=== PATIENT | male | born 1960 | race Two or more races ===

== ENCOUNTER 2018-07-06 09:39 | Inpatient (IN) | payer SELFPAY ==
[2018-07-06] MEDS ORDERED: Piperacillin/Tazobac ADVAN(*) 3.375 GM in NS 0.9% 100 ML* 100 ML IVPB ONE ×2 (10:03→11:47)
[2018-07-06] MEDS ORDERED: NS 0.9% 1000 ML** 1,000 ML IV ONE (10:05)
[2018-07-06 10:34] LABS: ABS Basophils 0.1 10^3/ul (0-0.2); ABS Eosinophils 0.1 10^3/ul (0-0.6); ABS Lymphocytes 1.4 10^3/ul (1.0-4.8); ABS Monocytes 0.7 10^3/ul (0-0.8); Eosinophil % 1.1 %; Hematocrit 45 % (42-52); Hemoglobin 15.2 g/dL (14.0-18.0); Lymphocyte % 16.7 %; Mean Corpuscular HGB Conc 34 g/dL (31-36); Mean Corpuscular Hemoglobin 31 pg (27-31); Mean Corpuscular Volume 90 fL (80-94); Mean Platelet Volume 7.9 fL (7.4-10.4); Platelet Count 317 10^3/uL (150-450); Red Blood Count 4.95 10^6 /uL (4.18-5.48); Red Cell Distribution Width 13 % (10.5-15); White Blood Count 8.3 10^3/uL (3.5-10.8)
--- NOTE | 2018-07-06 10:39 | ED ---
Lower Extremity - HPI Summary HPI Summary: Patient is a 58-year-old male who presents to the ED with the foot contusion 2 weeks ago now with erythema, worsening pain and discoloration to the fifth toe. Denies a history of known diabetes. He is otherwise healthy and takes no medications. He states he developed the redness over the past few days and has not noticed the discoloration of the toe until the past few days as well. Pain is worsening and he states he has been limping due to pain. Pain is most notably to the dorsum of the foot extending up into the lower extremity just proximal to the left ankle with slight streaking and erythema. There is erythema to the dorsum of the left foot. He denies any fevers, sweats, chills. - History of Current Complaint Chief Complaint: EDExtremityLower Stated Complaint: RT FOOT INJURY PER PT Time Seen by Provider: 07/06/18 09:44 Hx Obtained From: Patient Onset of Pain: Days Onset/Duration: Weeks Severity Initially: Moderate Severity Currently: Moderate Pain Intensity: 10 Pain Scale Used: 0-10 Numeric Timing: Constant Location: Is Discrete @ - left dorsum of the foot and little toe Associated Signs And Symptoms: Positive: Bruising, Other - ecchymotic necrosed fifth toe Aggravating Factor(s): Standing, Ambulation - Risk Factors Gout Risk Factors: Male DVT Risk Factors: Negative Septic Arthritis Risk Factor: Negative - Allergies/Home Medications Allergies/Adverse Reactions: Allergies Allergy/AdvReac Type Severity Reaction Status Date / Time No Known Allergies Allergy Verified 07/06/18 09:45 Home Medications: Home Medications NK [No Home Medications Reported] 07/06/18 [History Confirmed 07/06/18] PMH/Surg Hx/FS Hx/Imm Hx Previously Healthy: Yes - unknown PMH - patient has no PCP - Immunization History Hx Pertussis Vaccination: No Immunizations Up to Date: No Infectious Disease History: No Infectious Disease History: Denies: Traveled Outside the [place] in Last 30 Days - Social History Occupation: Employed Full-time Lives: With Family Alcohol Use: None Hx Substance Use: No Substance Use Type: Reports: None Hx Tobacco Use: No Smoking Status (MU): Never Smoked Tobacco Review of Systems Constitutional: Negative Negative: Fever, Chills, Fatigue, Skin Diaphoresis Negative: Palpitations, Chest Pain Negative: Shortness Of Breath Genitourinary: Negative Positive: no symptoms reported, see HPI Positive: Arthralgia - left dorsum foot, left little toe Positive: Other - necrosis with ulcerations, bone not grossly visible, erythema to the dorsum of the L foot with lymphangitis extending just distal to the knee Neurological: Negative All Other Systems Reviewed And Are Negative: Yes Physical Exam Triage Information Reviewed: Yes Vital Signs On Initial Exam: Initial Vitals Temp Pulse Resp BP Pulse Ox 98.6 F 90 16 173/89 96 07/06/18 09:41 07/06/18 09:41 07/06/18 09:41 07/06/18 09:41 07/06/18 09:41 Vital Signs Reviewed: Yes Appearance: Positive: Well-Appearing Skin: Positive: Warm, Skin Color Reflects Adequate Perfusion, Other - necrosis to the L little toe Head/Face: Positive: Normal Head/Face Inspection Eyes: Positive: EOMI, DAVID, Conjunctiva Clear Neck: Positive: Supple, No Lymphadenopathy Respiratory/Lung Sounds: Positive: Clear to Auscultation, Breath Sounds Present Cardiovascular: Positive: RRR, Pulses are Symmetrical in both Upper and Lower Extremities. Negative: Leg Edema Left, Leg Edema Right Musculoskeletal: Positive: Pain @ - left foot and left lower ext with 2+ pitting edema Neurological: Positive: Sensory/Motor Intact, Speech Normal, Other - pedal pulses intact - weak to the L dorsum Psychiatric: Positive: Affect/Mood Appropriate AVPU Assessment: Alert Diagnostics - Vital Signs Vital Signs Temp Pulse Resp BP Pulse Ox 07/06/18 09:41 98.6 F 90 16 173/89 96 - Laboratory Lab Results: Lab Results 07/06/18 Range/Units 10:17 WBC 8.3 (3.5-10.8) 10^3/uL RBC 4.95 (4.18-5.48) 10^6 /uL Hgb 15.2 (14.0-18.0) g/dL Hct 45 (42-52) % MCV 90 (80-94) fL MCH 31 (27-31) pg MCHC 34 (31-36) g/dL RDW 13 (10.5-15) % Plt Count 317 (150-450) 10^3/uL MPV 7.9 (7.4-10.4) fL Neut % (Auto) 72.7 % Lymph % (Auto) 16.7 % [place] % (Auto) 8.3 % Eos % (Auto) 1.1 % Baso % (Auto) 1.2 % Absolute Neuts (auto) 6.0 (1.5-7.7) 10^3/ul Absolute Lymphs (auto) 1.4 (1.0-4.8) 10^3/ul Absolute Monos (auto) 0.7 (0-0.8) 10^3/ul Absolute Eos (auto) 0.1 (0-0.6) 10^3/ul Absolute Basos (auto) 0.1 (0-0.2) 10^3/ul Absolute Nucleated RBC 0.0 10^3/ul Nucleated RBC % 0.0 ESR Pending Result Diagrams: 07/06/18 10:17 07/06/18 10:17 Lab Statement: Any lab studies that have been ordered have been reviewed, and results considered in the medical decision making process. Lower Extremity Course/Dx - Course Course Of Treatment: Patient is evaluated for worsening left foot pain and toe pain. Physical examination, there is erythema to the dorsum of the foot with discoloration to the L little toe which resembles necrosis. Foot xray obtained. Labs obtained. He is given zosyn for group B strep, staph and pseudomonoas coverage. PE: necrosis with ulcerations, bone not grossly visible , erythema to the dorsum of the L foot with lymphangitis extending just distal to the knee. probe to the area is superficial without necrosis to the bone. ESR elevated at 108. CRP is 107. WBC normal. Glucose 215. A1C pending. Xray shows no evidence of fx or osteomyelitis. Discussed case with Dr. Page at 11:15am who suggests MRI and admission. LAURE ordered. Discussed with Dr. Allan to admit to hospitalist service, Kera Cline PA-C will consult. - Diagnoses Differential Diagnosis/HQI/PQRI: Positive: Cellulitis, Contusion, Osteomyelitis , Puncture Wound Provider Diagnoses: Toe necrosis - Physician Notifications Discussed Care Of Patient With: Chaz Page - admit to hospitalist service Instructed by Provider To: Admit As Inpatient Discharge - Sign-Out/Discharge Documenting (check all that apply): Patient Departure Patient Received Moderate/Deep Sedation with Procedure: No - Discharge Plan Condition: Fair Disposition: ADMITTED TO [facility] Referrals: No Primary Care Phys,NOPCP [Primary Care Provider] - - Billing Disposition and Condition Condition: FAIR Disposition: Admitted to [facility]
[2018-07-06] MEDS ORDERED: Morphine 4 MG/ML VIAL (1 ml) 4 MG/ML VIAL IV ONE (10:44)
[2018-07-06 10:49] LABS: Albumin 3.9 g/dL (3.2-5.2); Albumin/Globulin Ratio 1.2 (1-3); BUN/Creatinine Ratio 14.3 (8-20); C Reactive Protein 107.84 mg/L (<8.01); Calcium 9.3 mg/dL (8.6-10.3); EGFR African American 103.2 (>60); EGFR Non-African American 85.3 (>60); Globulin 3.3 g/dL (2-4); Total Bilirubin 0.4 mg/dL (0.2-1.0); Total Protein 7.2 g/dL (6.4-8.9)
[2018-07-06 11:46] LABS: Erythrocyte Sed Rate 108 mm/Hr (0-19)
[2018-07-06] MEDS ORDERED: Zosyn per Pharmacy* NOTE FOLLOW UP SCH (12:00)
[2018-07-06] MEDS ORDERED: LORazepam TAB(*) 1 MG PO PRN (12:31)
--- NOTE | 2018-07-06 14:01 | HP ---
CC: Dr. Page; Dr. Stewart* HISTORY AND PHYSICAL: DATE OF ADMISSION: 07/06/18 PRIMARY CARE PROVIDER: None. CHIEF COMPLAINT: Left foot pain after "I crashed it with a truck door 2 weeks ago." HISTORY OF PRESENT ILLNESS: Mr. Cline is a 58-year-old male who stated that he crashed his left foot with the door approximately 2 weeks ago. Over the next day, it started hurting more and it continued to hurt for 2 weeks and finally he decided to come into the ED for evaluation. He stated that he has been afebrile. His left foot had been swollen ever since the accident. He has not noticed any other worrisome symptoms. I was called to evaluate this patient for necrotic left fifth toe. Orthopedic service requested the medicine service to admit this patient for further management. The patient is going to undergo an MRI of the foot and be admitted to the hospital for likely left fifth toe osteomyelitis. PAST MEDICAL HISTORY: Tonsillectomy as a child. MEDICATIONS: None. ALLERGIES: No known drug allergies. SOCIAL HISTORY: The patient drinks 2 to 4 beers every other day and smokes a pack of cigarettes per day and he started smoking when he was 11 years old. 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 His surrogate, he names his sister Marilee and his mother. His sister lives in [place]; his mother lives in [place], [place]. REVIEW OF SYSTEMS: Please see history of present illness. All the other remaining 12 systems were reviewed with the patient and were otherwise negative. Specifically, the patient denies any chest pain or dyspnea with exertion. He has not had any cardiac problems. He had not seen a doctor for many years. PHYSICAL EXAMINATION GENERAL: The patient is a pleasant 58-year-old male who is in no acute distress. Alert and oriented x3. VITAL SIGNS: Blood pressure of 135/71, heart rate of 18 and regular, respiratory rate 16, oxygen saturation 94% on room air, temperature of 98.6. HEENT: Head atraumatic, normocephalic. Eyes: Pupils are equal and reactive to light and accommodation. Oropharynx is clear. Mucosa moist. NECK: Supple. No JVD. No bruit bilaterally. RESPIRATORY: Coarse rhonchi at bilateral bases, otherwise clear. CARDIOVASCULAR: Regular rate and rhythm. No murmur. ABDOMEN: Soft, nontender. Bowel sounds are present in all 4 quadrants. EXTREMITIES: There is nonpitting left ankle and left foot edema. Pulses are poorly palpable, but present bilaterally. There is no clubbing or cyanosis. The left foot is edematous with the left fifth toe appearing necrotic with an area of subcutaneous purulent collection laterally. There is erythema overlying the lateral aspect of the foot consistent with cellulitis. NEURO EVALUATION: Speech clear. Cranial nerves II through XII grossly intact. Motor strength is 5/5 bilaterally. DIAGNOSTIC STUDIES/LAB DATA: White blood cell count of 8.3, hemoglobin 15.2, hematocrit 45, platelets of 317. Sodium of 138, potassium 4.0, chloride 103, carbon dioxide 28, BUN 13, creatinine 0.91. Glucose random of 215, alkaline phosphatase 134, C-reactive protein of 407. MRI of the foot is pending at the time of dictation. Left foot x-ray, impression: "No evidence of lysis to suggest osteomyelitis of the left sided digits. No fracture is noted." ASSESSMENT AND PLAN: 1. What appears to be necrotic left toe with likely osteomyelitis. The patient is going to undergo an MRI of the left foot and Dr. Page was notified by the ED and I believe he is going to ask Dr. Stewart from Orthopedic Surgery to see patient in evaluation. Either way, the orthopedic surgical service is going to be on consult. If patient required orthopedic surgery, he has had no history of cardiac symptoms and no history of heart disease. His glucose is elevated and he may have diabetes, but otherwise his exercise tolerance has not been impaired. His EKG is pending at the time of dictation, but assuming his EKG is not markedly abnormal, he is an appropriate candidate for possibility of left foot surgery. 2. Hyperglycemia. The patient's glucose level random was 215. We will obtain hemoglobin A1c and evaluate it further. 3. The patient's initial blood pressure was 173/89 and currently is 135/71. I believe this is a adrenergic response and we will continue to observe. 4. DVT prophylaxis. The patient is low risk and we will continue ambulation. In addition to that, his left distal leg is swollen and we will obtain Dopplers to rule out DVT. 5. The patient's code status is full. 6. Surrogate is his sister and his mother. TIME SPENT: Approximately 62 minutes were spent on admission of this patient; more than half that time was spent [id number] with the patient during the interview and physical exam. [id number]/[facility] #: [id number] HERRERA
[2018-07-06] MEDS ORDERED: Acetaminophen TAB* 325 MG PO PRN (14:29)
[2018-07-06] MEDS: NS 0.9% 1000 ML** 1,000 ML IV SCH (14:30)
[2018-07-06] MEDS: oxyCODONE TAB* 5 MG TAB PO PRN ×2 (14:36→20:59)
[2018-07-06] MEDS: ZOSYN 3.375 GM Q8H per EXTENDED INFUSION IVPB SCH ×4 (15:40→22:52)
--- NOTE | 2018-07-06 15:56 | CONS ---
CONSULTATION REPORT: DATE OF CONSULT: 07/06/18 PRIMARY CARE PROVIDER: None. CHIEF COMPLAINT: Left foot pain and black toe. HISTORY OF PRESENT ILLNESS: Mr. Cline is a 58-year-old male with no past medical history as he has not been to a doctor in roughly 15 years who presents to [facility] 07/06/18 with a painful black left little toe. He slammed the door on his left foot roughly 2 weeks ago, he has experienced pain and progressive blackening of his little toe on the left foot. Due to worsening appearance and pain, he decided to come to the emergency room on 07/06/18. He has not had any fever or chills. He is newly diagnosed with diabetes this hospital stay, he carries a strong family history of diabetes. PAST MEDICAL HISTORY: None known. PAST SURGICAL HISTORY: None. MEDICATIONS: None. ALLERGIES: No known drug allergies. SOCIAL HISTORY: The patient drinks 12 beers a day and smokes three quarters pack of cigarettes a day. He smokes marijuana occasionally. He works at a local restaurant as a cook. His sister is at hospital with him today. REVIEW OF SYSTEMS: General: No fever or chills. HEENT: No headache. No change in vision. Cardiac: No chest pain. No history of VA. Respiratory: No shortness of breath or cough. GI: No abdominal pain, nausea, vomiting, or diarrhea. : No dysuria. Musculoskeletal: Positive for black, painful left little toe. No other complaints of extremities. Neuro: Denies any decreased sensation of extremities. Hematology: No history of blood clot. PHYSICAL EXAM: General: Pleasant, well appearing, no acute distress. Vital Signs: Temperature 98.2, pulse rate 78, respiratory rate 18, oxygen saturation 100%, blood pressure 152/67. HEENT: Head is normocephalic and atraumatic. Extraocular movements are intact. Cardio: S1, S2. Regular rate and rhythm. Respiratory: Clear to auscultation bilaterally. Abdomen: Soft, nontender, nondistended. Bilateral upper extremities and contralateral lower extremity, skin envelope intact. No erythema. No tenderness to palpation. Able to move extremities well without pain. Left lower extremity, nontender to palpation from ankle proximally, though he is quite tender to palpation throughout the dorsum of the foot and the base of the 5th toe. 5th toe is black in coloration and insensate distally. There is no discharge. There is mild erythema of the dorsum of the foot, which does not extend past the ankle. Neuro: Sensation is intact to light touch throughout bilateral upper and lower extremities aside from the left fifth toe, which is insensate. Vascular: DP is 1+ and PT 2+ on the left lower extremity. DP and PT 2+ on the right lower extremity. DIAGNOSTIC STUDIES/LAB DATA: Left foot x-ray, no evidence of fracture. Left foot MRI, bone marrow edema in the proximal, middle and distal phalanges of the fifth toe and distal phalanx of the fourth toe suggestive of osteomyelitis, ABIs on the left 0.81, left toe LAURE 0.28. ASSESSMENT: Necrotic left little toe. PLAN: The patient can continue to receive IV antibiotics as ordered per medicine. I spoke with Dr Ram, vascular, who will see him in consult. He will need an amputation of this left fifth toe. Unless he becomes systemically ill, this can wait until vascular evaluation and intervention if needed is complete. Dr Grimm saw this patient as well, he is in agreement with this plan. He should receive chemical DVT prophylaxis while in house, SCDs and needs diabetes education. MARLENE CRISOSTOMO [id number]/[facility] #: [id number] MTDVanessa
[2018-07-06] MEDS ORDERED: Iohexol 350* (CONTRAST) 500 ML MDV IV ONE (16:07)
[2018-07-06] MEDS ORDERED: Dextrose 50% Syringe 50 ML* 25 GM/50 ML SYRINGE IV PUSH PRN (18:40)
[2018-07-06] MEDS: Insulin LISPRO* 1 UNITS UNIT SUBCUT SCH (21:46)
[2018-07-07] MEDS: NS 0.9% 1000 ML** 1,000 ML IV SCH (04:23)
[2018-07-07 05:23] LABS: ABS Basophils 0.1 10^3/ul (0-0.2); ABS Eosinophils 0.1 10^3/ul (0-0.6); ABS Lymphocytes 1.8 10^3/ul (1.0-4.8); ABS Monocytes 0.7 10^3/ul (0-0.8); ABS Neutrophils 5.5 10^3/ul (1.5-7.7); Eosinophil % 1.6 %; Hematocrit 41 % (42-52); Lymphocyte % 21.8 %; Mean Corpuscular HGB Conc 34 g/dL (31-36); Mean Corpuscular Hemoglobin 30 pg (27-31); Mean Corpuscular Volume 89 fL (80-94); Mean Platelet Volume 7.8 fL (7.4-10.4); Platelet Count 251 10^3/uL (150-450); Red Cell Distribution Width 13 % (10.5-15); White Blood Count 8.2 10^3/uL (3.5-10.8)
[2018-07-07 05:38] LABS: BUN/Creatinine Ratio 12.9 (8-20); Calcium 8.8 mg/dL (8.6-10.3); EGFR African American 111.6 (>60); EGFR Non-African American 92.3 (>60); Potassium 3.8 mmol/L (3.5-5.0)
[2018-07-07] MEDS: ZOSYN 3.375 GM Q8H per EXTENDED INFUSION IVPB SCH ×6 (06:30→22:55)
[2018-07-07] MEDS: oxyCODONE TAB* 5 MG TAB PO PRN ×3 (07:04→17:49)
[2018-07-07] MEDS: Insulin LISPRO* 1 UNITS UNIT SUBCUT SCH ×4 (08:09→22:54)
--- NOTE | 2018-07-07 09:18 | PN ---
Subjective Date of Service: 07/07/18 Interval History: Mr. Cline is a 58 yo male, admitted with concern for left 5th toe crush injury with subsequent gangrene to the small toe and concern for osteomyelitis. He was also found to have diabetes and PAD. Mr. Cline states he does not have a PCP and was unaware he was diabetic, though he states his whole family is. He actively smokes and drinks large amounts of alcohol on a regular, if not daily basis. He currently denies fever/chills, CPs, SOB, abd pain, n/v, tremors, or significant pain. He denies tingling/numbness and states the left foot is very tender, especially at the area of the toe. Family History: Unchanged from Admission Social History: Unchanged from Admission Past Medical History: Unchanged from Admission Objective Active Medications: Acetaminophen (Tylenol Tab*) 650 mg PO Q4H PRN PRN Reason: FEVER/PAIN Dextrose (D50w Syringe 50 Ml*) 12.5 gm IV PUSH .FOR FS < 60 - SS PRN PRN Reason: FS < 60 Sodium Chloride (Ns 0.9% 1000 Ml) 1,000 mls @ 75 mls/hr IV PER RATE [facility] Last Admin: 07/07/18 04:23 Dose: 75 mls/hr Piperacillin Sod/Tazobactam (Sod 3.375 gm/ Sodium Chloride) 100 mls @ 25 mls/ hr IVPB Q8H [facility] Last Admin: 07/07/18 06:30 Dose: 25 mls/hr Insulin Human Lispro (Humalog*) 0 units SUBCUT ACHS [facility]; Protocol Last Admin: 07/07/18 08:09 Dose: Not Given Lorazepam (Ativan Tab(*)) 1 mg PO Q6H PRN PRN Reason: withdrawal Oxycodone HCl (Roxycodone Tab*) 5 mg PO Q6H PRN PRN Reason: PAIN Last Admin: 07/07/18 07:04 Dose: 5 mg Pharmacy Consult (Zosyn Per Pharmacy*) 1 note FOLLOW UP .ZOSYN PER PHARMACY [facility] Vital Signs - 8 hr 07/07/18 07/07/18 07/07/18 06:31 07:04 07:47 Temperature 98.4 F Pulse Rate 71 Respiratory 18 16 16 Rate Blood Pressure 143/99 (mmHg) O2 Sat by Pulse 93 Oximetry Oxygen Devices in Use Now: None Appearance: Middle aged male, sitting up in bed, NAD Eyes: No Scleral Icterus, PERRLA Ears/Nose/Mouth/Throat: Clear Oropharnyx, Mucous Membranes Moist Neck: NL Appearance and Movements; NL JVP Respiratory: Symmetrical Chest Expansion and Respiratory Effort Cardiovascular: NL Sounds; No Murmurs; No JVD, RRR Abdominal: NL Sounds; No Tenderness; No Distention Extremities: - - necrotic left 5th toe, localized edema to left ankle and foot, unable to palpate distal pulse Skin: - - erythema to left foot Neurological: Alert and Oriented x 3, NL Muscle Strength and Tone Lines/Tubes/Other Access: Clean, Dry and Intact Peripheral IV Nutrition: Taking PO's Result Diagrams: 07/07/18 05:08 07/07/18 05:08 Additional Lab and Data: Lab Results 07/06/18 Range/Units 10:17 WBC 8.3 (3.5-10.8) 10^3/uL RBC 4.95 (4.18-5.48) 10^6 /uL Hgb 15.2 (14.0-18.0) g/dL Hct 45 (42-52) % MCV 90 (80-94) fL MCH 31 (27-31) pg MCHC 34 (31-36) g/dL RDW 13 (10.5-15) % Plt Count 317 (150-450) 10^3/uL MPV 7.9 (7.4-10.4) fL Neut % (Auto) 72.7 % Lymph % (Auto) 16.7 % [place] % (Auto) 8.3 % Eos % (Auto) 1.1 % Baso % (Auto) 1.2 % Absolute Neuts (auto) 6.0 (1.5-7.7) 10^3/ul Absolute Lymphs (auto) 1.4 (1.0-4.8) 10^3/ul Absolute Monos (auto) 0.7 (0-0.8) 10^3/ul Absolute Eos (auto) 0.1 (0-0.6) 10^3/ul Absolute Basos (auto) 0.1 (0-0.2) 10^3/ul Absolute Nucleated RBC 0.0 10^3/ul Nucleated RBC % 0.0 ESR Pending Assess/Plan/Problems-Billing Assessment: Mr. Cline is a 58 yo male with no previously known medical history who presented to the ED on 07/06/18 with concern for left necrotic 5th toe from car door crush injury and was found to have concern for osteomyelitis, likely secondary to undiagnosed type 2 diabetes and peripheral arterial disease. - Patient Problems (1) Toe necrosis Code(s): I96 - GANGRENE, NOT ELSEWHERE CLASSIFIED Comment: Secondary to car door crush injury Appreciate ortho consult Plan for amputation of toe but will need vascular consult and intervention, given concurrent PAD. (2) Osteomyelitis Code(s): M86.9 - OSTEOMYELITIS, UNSPECIFIED Comment: Likely secondary to injury to left foot and 5th toe Continue Zosyn ID consult requested (3) Type 2 diabetes mellitus Comment: HgbA1c 8.8 Newly diagnosed Diabetes education ordered Continue FSBG with Lispro Insulin coverage. Patient would benefit from further outpatient education. (4) Peripheral arterial disease Code(s): I73.9 - PERIPHERAL VASCULAR DISEASE, UNSPECIFIED Comment: CTA with runoff with concern for PAD Appreciate interventional radiology consult, which is pending I have discussed concurrent risk factors with patient, including tobacco and alcohol use, as well as diet. Patient also appears to have hypertension, as evidenced by BP trend SBP 130s- 150s Start low dose lisinopril. Add on lipid profile to AM labs. (5) DVT prophylaxis Code(s): Z29.9 - ENCOUNTER FOR PROPHYLACTIC MEASURES, UNSPECIFIED Comment: Ambulation If prolonged stay, consider adding chemoprophylaxis. Status and Disposition: Inpatient admission. Patient does not have PCP and will need referral. He will also need referral for further diabetes education. Dispo pending consultation from interventional radiology. Attending: Guillermo Gifford
--- NOTE | 2018-07-07 12:02 | PN ---
Progress Note - Progress Note Date of Service: 07/07/18 SOAP: Subjective: resting comfortably in bed without complaints Objective: Vital Signs Temp Pulse Resp BP Pulse Ox 98.4 F 71 20 143/99 93 07/07/18 07:47 07/07/18 07:47 07/07/18 11:54 07/07/18 07:47 07/07/18 07:47 Laboratory Last Values WBC 8.2 10^3/uL (3.5-10.8) 07/07/18 05:08 RBC 4.60 10^6 /uL (4.18-5.48) 07/07/18 05:08 Hgb 14.0 g/dL (14.0-18.0) 07/07/18 05:08 Hct 41 % (42-52) L 07/07/18 05:08 MCV 89 fL (80-94) 07/07/18 05:08 MCH 30 pg (27-31) 07/07/18 05:08 MCHC 34 g/dL (31-36) 07/07/18 05:08 RDW 13 % (10.5-15) 07/07/18 05:08 Plt Count 251 10^3/uL (150-450) 07/07/18 05:08 MPV 7.8 fL (7.4-10.4) 07/07/18 05:08 Neut % (Auto) 66.3 % 07/07/18 05:08 Lymph % (Auto) 21.8 % 07/07/18 05:08 [place] % (Auto) 9.0 % 07/07/18 05:08 Eos % (Auto) 1.6 % 07/07/18 05:08 Baso % (Auto) 1.3 % 07/07/18 05:08 Absolute Neuts (auto) 5.5 10^3/ul (1.5-7.7) 07/07/18 05:08 Absolute Lymphs (auto) 1.8 10^3/ul (1.0-4.8) 07/07/18 05:08 Absolute Monos (auto) 0.7 10^3/ul (0-0.8) 07/07/18 05:08 Absolute Eos (auto) 0.1 10^3/ul (0-0.6) 07/07/18 05:08 Absolute Basos (auto) 0.1 10^3/ul (0-0.2) 07/07/18 05:08 Absolute Nucleated RBC 0.0 10^3/ul 07/07/18 05:08 Nucleated RBC % 0.0 07/07/18 05:08 ESR 108 mm/Hr (0-19) H 07/06/18 10:17 Sodium 137 mmol/L (135-145) 07/07/18 05:08 Potassium 3.8 mmol/L (3.5-5.0) 07/07/18 05:08 Chloride 104 mmol/L (101-111) 07/07/18 05:08 Carbon Dioxide 28 mmol/L (22-32) 07/07/18 05:08 Anion Gap 5 mmol/L (2-11) 07/07/18 05:08 BUN 11 mg/dL (6-24) 07/07/18 05:08 Creatinine 0.85 mg/dL (0.67-1.17) 07/07/18 05:08 Est GFR ( Amer) 111.6 (>60) 07/07/18 05:08 Est GFR (Non-Af Amer) 92.3 (>60) 07/07/18 05:08 BUN/Creatinine Ratio 12.9 (8-20) 07/07/18 05:08 Glucose 192 mg/dL (70-100) H 07/07/18 05:08 POC Glucose (mg/dL) 327 mg/dL (70-100) H 07/07/18 11:45 Hemoglobin A1c 8.8 % (4.0-5.6) H 07/06/18 10:17 Calcium 8.8 mg/dL (8.6-10.3) 07/07/18 05:08 Total Bilirubin 0.40 mg/dL (0.2-1.0) 07/06/18 10:17 AST 12 U/L (13-39) L 07/06/18 10:17 ALT 11 U/L (7-52) 07/06/18 10:17 Alkaline Phosphatase 134 U/L (34-104) H 07/06/18 10:17 C-Reactive Protein 107.84 mg/L (<8.01) H 07/06/18 10:17 Total Protein 7.2 g/dL (6.4-8.9) 07/06/18 10:17 Albumin 3.9 g/dL (3.2-5.2) 07/06/18 10:17 Globulin 3.3 g/dL (2-4) 07/06/18 10:17 Albumin/Globulin Ratio 1.2 (1-3) 07/06/18 10:17 left small toe necrotic with mild erythema on dorsum of foot, dimished DP pulse , diminished sensation Assessment: left small toe necrosis Plan: 1) Continue IV abx 2) hospitalist co-managing 3) awaiting Dr. Ram recommendations regarding revascularization 4) will need left small toe amputation next week
[2018-07-07 13:43] LABS: HDL Cholesterol 52.1 mg/dL
[2018-07-07] MEDS ORDERED: Lisinopril TAB* 5 MG ONE (13:43)
[2018-07-07] MEDS: Lisinopril TAB* 5 MG PO SCH (13:46)
--- NOTE | 2018-07-07 19:01 | PN ---
Progress Note - Progress Note Date of Service: 07/07/18 Note: Recent LAURE & CTA reviewed. There is at least flow limiting stenosis in the right SFA/pop and likely infrapopliteal arteries occlusion contributing to the patient's necrotic toe. Angiography is necessary to better evaluate disease and potentially revascularize. Likely I can examine the patient in the hospital Tuesday, July 09, Tuesday, July 10 at the latest. I called and discussed this with Cat Asif NP.
[2018-07-08] MEDS: oxyCODONE TAB* 5 MG TAB PO PRN ×4 (00:17→21:41)
[2018-07-08 05:54] LABS: ABS Eosinophils 0.1 10^3/ul (0-0.6); ABS Monocytes 0.8 10^3/ul (0-0.8); ABS Neutrophils 4.8 10^3/ul (1.5-7.7); Eosinophil % 1.8 %; Hematocrit 39 % (42-52); Hemoglobin 13.3 g/dL (14.0-18.0); Lymphocyte % 25.5 %; Mean Corpuscular HGB Conc 34 g/dL (31-36); Mean Corpuscular Hemoglobin 30 pg (27-31); Mean Corpuscular Volume 90 fL (80-94); Mean Platelet Volume 8.1 fL (7.4-10.4); Nucleated Red Blood Cells % 0.1; Platelet Count 249 10^3/uL (150-450); Red Blood Count 4.39 10^6 /uL (4.18-5.48); Red Cell Distribution Width 13 % (10.5-15); White Blood Count 7.8 10^3/uL (3.5-10.8)
[2018-07-08] MEDS: ZOSYN 3.375 GM Q8H per EXTENDED INFUSION IVPB SCH ×6 (06:51→23:34)
[2018-07-08] MEDS: Lisinopril TAB* 5 MG PO SCH (07:32)
--- NOTE | 2018-07-08 08:59 | PN ---
Subjective Date of Service: 07/08/18 Interval History: . Patient reports he feels well. Reports left foot/toe has doe swelling, redness and pain. Denies any fever/chill, N/V/D. Family History: Unchanged from Admission Social History: Unchanged from Admission Past Medical History: Unchanged from Admission Objective Active Medications: Acetaminophen (Tylenol Tab*) 650 mg PO Q4H PRN PRN Reason: FEVER/PAIN Dextrose (D50w Syringe 50 Ml*) 12.5 gm IV PUSH .FOR FS < 60 - SS PRN PRN Reason: FS < 60 Sodium Chloride (Ns 0.9% 1000 Ml) 1,000 mls @ 75 mls/hr IV PER RATE [facility] Last Admin: 07/07/18 04:23 Dose: 75 mls/hr Piperacillin Sod/Tazobactam (Sod 3.375 gm/ Sodium Chloride) 100 mls @ 25 mls/ hr IVPB Q8H [facility] Last Admin: 07/08/18 06:51 Dose: 25 mls/hr Insulin Human Lispro (Humalog*) 0 units SUBCUT ACHS [facility]; Protocol Last Admin: 07/07/18 22:54 Dose: 4 units Lisinopril (Prinivil Tab*) 5 mg PO DAILY [facility] Last Admin: 07/08/18 07:32 Dose: 5 mg Lorazepam (Ativan Tab(*)) 1 mg PO Q6H PRN PRN Reason: withdrawal Oxycodone HCl (Roxycodone Tab*) 5 mg PO Q6H PRN PRN Reason: PAIN Last Admin: 07/08/18 07:31 Dose: 5 mg Pharmacy Consult (Zosyn Per Pharmacy*) 1 note FOLLOW UP .ZOSYN PER PHARMACY [facility] Vital Signs - 8 hr 07/08/18 07/08/18 07/08/18 03:24 06:53 07:18 Temperature 98.3 F 98.3 F Pulse Rate 71 72 Respiratory 16 18 18 Rate Blood Pressure 126/53 126/60 (mmHg) O2 Sat by Pulse 95 95 Oximetry 07/08/18 07:31 Temperature Pulse Rate Respiratory 18 Rate Blood Pressure (mmHg) O2 Sat by Pulse Oximetry Oxygen Devices in Use Now: None Appearance: 58 yo male A+O x3 in NAD Eyes: No Scleral Icterus, PERRLA Respiratory: Symmetrical Chest Expansion and Respiratory Effort, Clear to Auscultation Cardiovascular: NL Sounds; No Murmurs; No JVD, RRR Abdominal: NL Sounds; No Tenderness; No Distention Extremities: - - Left toe is necrotic, pale, dusky in color, there is faded light erythema on top of foot with mild edema Neurological: Alert and Oriented x 3, NL Muscle Strength and Tone Lines/Tubes/Other Access: Clean, Dry and Intact Peripheral IV Nutrition: Taking PO's Result Diagrams: 07/08/18 05:14 07/07/18 05:08 Additional Lab and Data: Lab Results 07/06/18 Range/Units 10:17 WBC 8.3 (3.5-10.8) 10^3/uL RBC 4.95 (4.18-5.48) 10^6 /uL Hgb 15.2 (14.0-18.0) g/dL Hct 45 (42-52) % MCV 90 (80-94) fL MCH 31 (27-31) pg MCHC 34 (31-36) g/dL RDW 13 (10.5-15) % Plt Count 317 (150-450) 10^3/uL MPV 7.9 (7.4-10.4) fL Neut % (Auto) 72.7 % Lymph % (Auto) 16.7 % [place] % (Auto) 8.3 % Eos % (Auto) 1.1 % Baso % (Auto) 1.2 % Absolute Neuts (auto) 6.0 (1.5-7.7) 10^3/ul Absolute Lymphs (auto) 1.4 (1.0-4.8) 10^3/ul Absolute Monos (auto) 0.7 (0-0.8) 10^3/ul Absolute Eos (auto) 0.1 (0-0.6) 10^3/ul Absolute Basos (auto) 0.1 (0-0.2) 10^3/ul Absolute Nucleated RBC 0.0 10^3/ul Nucleated RBC % 0.0 ESR Pending Microbiology and Other Data: Microbiology 07/06/18 11:00 Aerobic Blood Culture - Preliminary Blood Venous No Growth Day 1 Anaerobic Blood Culture - Preliminary No Growth Day 1 07/06/18 10:17 Aerobic Blood Culture - Preliminary Blood Venous No Growth Day 1 Anaerobic Blood Culture - Preliminary No Growth Day 1 Assess/Plan/Problems-Billing Assessment: Mr. Cline is a 58 yo male with no previously known medical history who presented to the ED on 07/06/18 with concern for left necrotic 5th toe from car door crush injury and was found to have concern for osteomyelitis, likely secondary to undiagnosed type 2 diabetes and peripheral arterial disease. - Patient Problems (1) Toe necrosis Comment: Secondary to car door crush injury Appreciate ortho consult Plan for amputation of toe but will need vascular consult and intervention, given concurrent PAD. (2) Osteomyelitis Comment: Likely secondary to injury to left foot and 5th toe Continue Zosyn ID consult requested (3) Peripheral arterial disease Comment: CTA with runoff with concern for PAD Appreciate interventional radiology consult, will continue to follow Discussed concurrent risk factors with patient, including tobacco and alcohol use, as well as diet. Patient also appears to have hypertension - was started on low dose lisinopril. lipid profile this am is WNLS (4) Type 2 diabetes mellitus Comment: HgbA1c 8.8 Newly diagnosed Diabetes education 15 minutes Should be referred to endocrinology with Dr. Moctezuma at discharge Continue FSBG with Lispro Insulin coverage. Patient would benefit from further outpatient education. (5) DVT prophylaxis Comment: Ambulation If prolonged stay, consider adding chemoprophylaxis. Status and Disposition: Inpatient admission. Patient does not have PCP and will need referral. He will also need referral for further diabetes education.
[2018-07-08] MEDS: Insulin LISPRO* 1 UNITS UNIT SUBCUT SCH ×4 (09:10→21:42)
[2018-07-08] MEDS: Nicotine* 2MG (FRUIT FLAVOR) GUM PO PRN ×2 (10:30→16:48)
--- NOTE | 2018-07-08 12:27 | PN ---
Progress Note - Progress Note Date of Service: 07/08/18 SOAP: Subjective: Pt seen sitting up in chair. No complaint of pain. Denies CP, SOB. Vital Signs: Temp Pulse Resp BP Pulse Ox 97.8 F 78 18 146/61 100 07/08/18 11:25 07/08/18 11:25 07/08/18 11:25 07/08/18 11:25 07/08/18 11:25 Laboratory Last Values WBC 7.8 10^3/uL (3.5-10.8) 07/08/18 05:14 RBC 4.39 10^6 /uL (4.18-5.48) 07/08/18 05:14 Hgb 13.3 g/dL (14.0-18.0) L 07/08/18 05:14 Hct 39 % (42-52) L 07/08/18 05:14 MCV 90 fL (80-94) 07/08/18 05:14 MCH 30 pg (27-31) 07/08/18 05:14 MCHC 34 g/dL (31-36) 07/08/18 05:14 RDW 13 % (10.5-15) 07/08/18 05:14 Plt Count 249 10^3/uL (150-450) 07/08/18 05:14 MPV 8.1 fL (7.4-10.4) 07/08/18 05:14 Neut % (Auto) 61.6 % 07/08/18 05:14 Lymph % (Auto) 25.5 % 07/08/18 05:14 [place] % (Auto) 10.5 % 07/08/18 05:14 Eos % (Auto) 1.8 % 07/08/18 05:14 Baso % (Auto) 0.6 % 07/08/18 05:14 Absolute Neuts (auto) 4.8 10^3/ul (1.5-7.7) 07/08/18 05:14 Absolute Lymphs (auto) 2.0 10^3/ul (1.0-4.8) 07/08/18 05:14 Absolute Monos (auto) 0.8 10^3/ul (0-0.8) 07/08/18 05:14 Absolute Eos (auto) 0.1 10^3/ul (0-0.6) 07/08/18 05:14 Absolute Basos (auto) 0.0 10^3/ul (0-0.2) 07/08/18 05:14 Absolute Nucleated RBC 0.0 10^3/ul 07/08/18 05:14 Nucleated RBC % 0.1 07/08/18 05:14 ESR 108 mm/Hr (0-19) H 07/06/18 10:17 Sodium 137 mmol/L (135-145) 07/07/18 05:08 Potassium 3.8 mmol/L (3.5-5.0) 07/07/18 05:08 Chloride 104 mmol/L (101-111) 07/07/18 05:08 Carbon Dioxide 28 mmol/L (22-32) 07/07/18 05:08 Anion Gap 5 mmol/L (2-11) 07/07/18 05:08 BUN 11 mg/dL (6-24) 07/07/18 05:08 Creatinine 0.85 mg/dL (0.67-1.17) 07/07/18 05:08 Est GFR ( Amer) 111.6 (>60) 07/07/18 05:08 Est GFR (Non-Af Amer) 92.3 (>60) 07/07/18 05:08 BUN/Creatinine Ratio 12.9 (8-20) 07/07/18 05:08 Glucose 192 mg/dL (70-100) H 07/07/18 05:08 POC Glucose (mg/dL) 160 mg/dL (70-100) H 07/08/18 07:35 Hemoglobin A1c 8.8 % (4.0-5.6) H 07/06/18 10:17 Calcium 8.8 mg/dL (8.6-10.3) 07/07/18 05:08 Total Bilirubin 0.40 mg/dL (0.2-1.0) 07/06/18 10:17 AST 12 U/L (13-39) L 07/06/18 10:17 ALT 11 U/L (7-52) 07/06/18 10:17 Alkaline Phosphatase 134 U/L (34-104) H 07/06/18 10:17 C-Reactive Protein 107.84 mg/L (<8.01) H 07/06/18 10:17 Total Protein 7.2 g/dL (6.4-8.9) 07/06/18 10:17 Albumin 3.9 g/dL (3.2-5.2) 07/06/18 10:17 Globulin 3.3 g/dL (2-4) 07/06/18 10:17 Albumin/Globulin Ratio 1.2 (1-3) 07/06/18 10:17 Triglycerides 77 mg/dL 07/07/18 05:08 Cholesterol 162 mg/dL 07/07/18 05:08 LDL Cholesterol 95 mg/dL 07/07/18 05:08 HDL Cholesterol 52.1 mg/dL 07/07/18 05:08 Objective: A&O x3, NAD, Left toe necrosis, diminished DP pulse, diminished sensation. Assessment: Left small toe necrosis Plan: Continue IV Abx Hospitalist co-managing Awaiting Dr. Ram recommendation on revascularization Will require Toe amp next week
[2018-07-09] MEDS: oxyCODONE TAB* 5 MG TAB PO PRN ×4 (04:27→21:34)
[2018-07-09 06:01] LABS: ABS Basophils 0.1 10^3/ul (0-0.2); ABS Eosinophils 0.1 10^3/ul (0-0.6); ABS Lymphocytes 1.5 10^3/ul (1.0-4.8); ABS Monocytes 0.8 10^3/ul (0-0.8); ABS Neutrophils 5.2 10^3/ul (1.5-7.7); Eosinophil % 1.5 %; Hematocrit 40 % (42-52); Hemoglobin 13.7 g/dL (14.0-18.0); Lymphocyte % 19.5 %; Mean Corpuscular HGB Conc 35 g/dL (31-36); Mean Corpuscular Hemoglobin 31 pg (27-31); Mean Corpuscular Volume 89 fL (80-94); Mean Platelet Volume 8.1 fL (7.4-10.4); Platelet Count 241 10^3/uL (150-450); Red Blood Count 4.46 10^6 /uL (4.18-5.48); Red Cell Distribution Width 13 % (10.5-15); White Blood Count 7.7 10^3/uL (3.5-10.8)
[2018-07-09] MEDS: ZOSYN 3.375 GM Q8H per EXTENDED INFUSION IVPB SCH ×6 (06:17→23:27)
[2018-07-09 06:23] LABS: BUN/Creatinine Ratio 12.9 (8-20); EGFR African American 100.6 (>60); EGFR Non-African American 83.2 (>60)
[2018-07-09] MEDS: Lisinopril TAB* 5 MG PO SCH (09:00)
[2018-07-09] MEDS: Insulin LISPRO* 1 UNITS UNIT SUBCUT SCH ×4 (09:01→21:35)
--- NOTE | 2018-07-09 09:49 | PN ---
Subjective Date of Service: 07/09/18 Interval History: patient reports he is feeling "pretty good" states the left foot overall is better in regards to swelling and redness - he has pain at the 4th and 5th toe - he states now the 4th toe appears to have color changes. He denies fever/ chills. No N/V/D. reports overall he is comfortable and feels well. Family History: Unchanged from Admission Social History: Unchanged from Admission Past Medical History: Unchanged from Admission Objective Active Medications: Acetaminophen (Tylenol Tab*) 650 mg PO Q4H PRN PRN Reason: FEVER/PAIN Dextrose (D50w Syringe 50 Ml*) 12.5 gm IV PUSH .FOR FS < 60 - SS PRN PRN Reason: FS < 60 Piperacillin Sod/Tazobactam (Sod 3.375 gm/ Sodium Chloride) 100 mls @ 25 mls/ hr IVPB Q8H [facility] Last Admin: 07/09/18 06:17 Dose: 25 mls/hr Insulin Human Lispro (Humalog*) 0 units SUBCUT [facility]; Protocol Last Admin: 07/09/18 09:01 Dose: 4 units Lisinopril (Prinivil Tab*) 5 mg PO DAILY [facility] Last Admin: 07/09/18 09:00 Dose: 5 mg Lorazepam (Ativan Tab(*)) 1 mg PO Q6H PRN PRN Reason: withdrawal Nicotine Polacrilex (Nicotine Gum*) 2 mg PO Q2H PRN PRN Reason: CRAVING Last Admin: 07/08/18 16:48 Dose: 2 mg Oxycodone HCl (Roxycodone Tab*) 5 mg PO Q6H PRN PRN Reason: PAIN Last Admin: 07/09/18 09:00 Dose: 5 mg Pharmacy Consult (Zosyn Per Pharmacy*) 1 note FOLLOW UP .ZOSYN PER PHARMACY [facility] Vital Signs - 8 hr 07/09/18 07/09/18 07/09/18 04:20 04:27 07:24 Temperature 98.4 F 98.5 F Pulse Rate 75 78 Respiratory 18 16 16 Rate Blood Pressure 143/62 130/67 (mmHg) O2 Sat by Pulse 98 99 Oximetry 07/09/18 07/09/18 07/09/18 08:00 09:00 09:05 Temperature Pulse Rate Respiratory 18 18 18 Rate Blood Pressure (mmHg) O2 Sat by Pulse Oximetry Oxygen Devices in Use Now: None Appearance: 58 yo male sitting up in NAD, A+O x3 Eyes: No Scleral Icterus, PERRLA Respiratory: Symmetrical Chest Expansion and Respiratory Effort, Clear to Auscultation Cardiovascular: NL Sounds; No Murmurs; No JVD, RRR, - - diminished Dp pulses Abdominal: NL Sounds; No Tenderness; No Distention Extremities: - - left 4th & 5th toe are dusky; erythema on top foot is light ( per patient this has greatly reduced); mild edema. foul odor noted. Sensation to 4th toe but no sensation to 5th Neurological: Alert and Oriented x 3, NL Sensation Lines/Tubes/Other Access: Clean, Dry and Intact Peripheral IV Result Diagrams: 07/09/18 05:42 07/09/18 05:41 Additional Lab and Data: Lab Results 07/06/18 Range/Units 10:17 WBC 8.3 (3.5-10.8) 10^3/uL RBC 4.95 (4.18-5.48) 10^6 /uL Hgb 15.2 (14.0-18.0) g/dL Hct 45 (42-52) % MCV 90 (80-94) fL MCH 31 (27-31) pg MCHC 34 (31-36) g/dL RDW 13 (10.5-15) % Plt Count 317 (150-450) 10^3/uL MPV 7.9 (7.4-10.4) fL Neut % (Auto) 72.7 % Lymph % (Auto) 16.7 % [place] % (Auto) 8.3 % Eos % (Auto) 1.1 % Baso % (Auto) 1.2 % Absolute Neuts (auto) 6.0 (1.5-7.7) 10^3/ul Absolute Lymphs (auto) 1.4 (1.0-4.8) 10^3/ul Absolute Monos (auto) 0.7 (0-0.8) 10^3/ul Absolute Eos (auto) 0.1 (0-0.6) 10^3/ul Absolute Basos (auto) 0.1 (0-0.2) 10^3/ul Absolute Nucleated RBC 0.0 10^3/ul Nucleated RBC % 0.0 ESR Pending Microbiology and Other Data: Microbiology 07/06/18 11:00 Aerobic Blood Culture - Preliminary Blood Venous No Growth Day 1 Anaerobic Blood Culture - Preliminary No Growth Day 1 07/06/18 10:17 Aerobic Blood Culture - Preliminary Blood Venous No Growth Day 1 Anaerobic Blood Culture - Preliminary No Growth Day 1 Assess/Plan/Problems-Billing Assessment: Mr. Cline is a 58 yo male with no previously known medical history who presented to the ED on 07/06/18 with concern for left necrotic 5th toe from car door crush injury and was found to have concern for osteomyelitis, likely secondary to undiagnosed type 2 diabetes and peripheral arterial disease. - Patient Problems (1) Toe necrosis Comment: Secondary to car door crush injury In the setting of undiagnosed DM II Appreciate ortho consult Plan for amputation of toe but will need vascular consult and intervention, given concurrent PAD. (2) Osteomyelitis Comment: Likely secondary to injury to left foot and 5th toe Continue Zosyn ID consult requested (3) Peripheral arterial disease Comment: CTA with runoff with concern for PAD Appreciate interventional radiology consult, will continue to follow Discussed concurrent risk factors with patient, including tobacco and alcohol use, as well as diet. Patient also appears to have hypertension - was started on low dose lisinopril. lipid profile this am is WNLS (4) Type 2 diabetes mellitus Comment: HgbA1c 8.8 Newly diagnosed Diabetes education 15 minutes Should be referred to endocrinology with Dr. Moctezuma at discharge Continue FSBG with Lispro Insulin coverage. Patient would benefit from further outpatient education. (5) DVT prophylaxis Comment: Ambulation If prolonged stay, consider adding chemoprophylaxis. Status and Disposition: Inpatient admission. Patient does not have PCP and will need referral. He will also need referral for further diabetes education.
[2018-07-09] MEDS: Nicotine* 2MG (FRUIT FLAVOR) GUM PO PRN (14:19)
--- NOTE | 2018-07-09 15:01 | PN ---
Progress Note - Progress Note Date of Service: 07/09/18 SOAP: Subjective: Pt seen and examined sitting in a chair. No complaint of pain. Denies CP, SOB. F /C. Vital Signs: Temp Pulse Resp BP Pulse Ox 98.1 F 83 16 112/45 98 07/09/18 11:15 07/09/18 11:15 07/09/18 11:15 07/09/18 11:15 07/09/18 11:15 Laboratory Last Values WBC 7.7 10^3/uL (3.5-10.8) 07/09/18 05:42 RBC 4.46 10^6 /uL (4.18-5.48) 07/09/18 05:42 Hgb 13.7 g/dL (14.0-18.0) L 07/09/18 05:42 Hct 40 % (42-52) L 07/09/18 05:42 MCV 89 fL (80-94) 07/09/18 05:42 MCH 31 pg (27-31) 07/09/18 05:42 MCHC 35 g/dL (31-36) 07/09/18 05:42 RDW 13 % (10.5-15) 07/09/18 05:42 Plt Count 241 10^3/uL (150-450) 07/09/18 05:42 MPV 8.1 fL (7.4-10.4) 07/09/18 05:42 Neut % (Auto) 68.2 % 07/09/18 05:42 Lymph % (Auto) 19.5 % 07/09/18 05:42 [place] % (Auto) 10.1 % 07/09/18 05:42 Eos % (Auto) 1.5 % 07/09/18 05:42 Baso % (Auto) 0.7 % 07/09/18 05:42 Absolute Neuts (auto) 5.2 10^3/ul (1.5-7.7) 07/09/18 05:42 Absolute Lymphs (auto) 1.5 10^3/ul (1.0-4.8) 07/09/18 05:42 Absolute Monos (auto) 0.8 10^3/ul (0-0.8) 07/09/18 05:42 Absolute Eos (auto) 0.1 10^3/ul (0-0.6) 07/09/18 05:42 Absolute Basos (auto) 0.1 10^3/ul (0-0.2) 07/09/18 05:42 Absolute Nucleated RBC 0.0 10^3/ul 07/09/18 05:42 Nucleated RBC % 0.0 07/09/18 05:42 ESR 108 mm/Hr (0-19) H 07/06/18 10:17 Sodium 134 mmol/L (135-145) L 07/09/18 05:41 Potassium 4.0 mmol/L (3.5-5.0) 07/09/18 05:41 Chloride 100 mmol/L (101-111) L 07/09/18 05:41 Carbon Dioxide 28 mmol/L (22-32) 07/09/18 05:41 Anion Gap 6 mmol/L (2-11) 07/09/18 05:41 BUN 12 mg/dL (6-24) 07/09/18 05:41 Creatinine 0.93 mg/dL (0.67-1.17) 07/09/18 05:41 Est GFR ( Amer) 100.6 (>60) 07/09/18 05:41 Est GFR (Non-Af Amer) 83.2 (>60) 07/09/18 05:41 BUN/Creatinine Ratio 12.9 (8-20) 07/09/18 05:41 Glucose 205 mg/dL (70-100) H 07/09/18 05:41 POC Glucose (mg/dL) 122 mg/dL (70-100) H 07/09/18 11:44 Hemoglobin A1c 8.8 % (4.0-5.6) H 07/06/18 10:17 Calcium 9.0 mg/dL (8.6-10.3) 07/09/18 05:41 Total Bilirubin 0.40 mg/dL (0.2-1.0) 07/06/18 10:17 AST 12 U/L (13-39) L 07/06/18 10:17 ALT 11 U/L (7-52) 07/06/18 10:17 Alkaline Phosphatase 134 U/L (34-104) H 07/06/18 10:17 C-Reactive Protein 107.84 mg/L (<8.01) H 07/06/18 10:17 Total Protein 7.2 g/dL (6.4-8.9) 07/06/18 10:17 Albumin 3.9 g/dL (3.2-5.2) 07/06/18 10:17 Globulin 3.3 g/dL (2-4) 07/06/18 10:17 Albumin/Globulin Ratio 1.2 (1-3) 07/06/18 10:17 Triglycerides 77 mg/dL 07/07/18 05:08 Cholesterol 162 mg/dL 07/07/18 05:08 LDL Cholesterol 95 mg/dL 07/07/18 05:08 HDL Cholesterol 52.1 mg/dL 07/07/18 05:08 Objective: A&O x3, NAD, Left small and some 4th toe necrosis. Diminished DP pulses, Diminished sensation. Assessment: Left small toe necrosis Plan: Continue IV abx Hospitalist co-managing Awaiting Dr. Ram recommendation for revascularization Likely Toe amp next week
[2018-07-10] MEDS: oxyCODONE TAB* 5 MG TAB PO PRN ×3 (05:38→19:41)
[2018-07-10] MEDS: ZOSYN 3.375 GM Q8H per EXTENDED INFUSION IVPB SCH ×4 (05:39→14:52)
[2018-07-10 06:10] LABS: ABS Eosinophils 0.1 10^3/ul (0-0.6); ABS Lymphocytes 1.8 10^3/ul (1.0-4.8); ABS Neutrophils 5.2 10^3/ul (1.5-7.7); Eosinophil % 1.5 %; Hematocrit 40 % (42-52); Hemoglobin 13.3 g/dL (14.0-18.0); Lymphocyte % 21.4 %; Mean Corpuscular HGB Conc 34 g/dL (31-36); Mean Corpuscular Hemoglobin 30 pg (27-31); Mean Corpuscular Volume 90 fL (80-94); Mean Platelet Volume 8.1 fL (7.4-10.4); Nucleated Red Blood Cells % 0.1; Platelet Count 257 10^3/uL (150-450); Red Blood Count 4.44 10^6 /uL (4.18-5.48); Red Cell Distribution Width 13 % (10.5-15); White Blood Count 8.2 10^3/uL (3.5-10.8)
[2018-07-10 06:14] LABS: INR 1.07 (0.82-1.09)
[2018-07-10 06:26] LABS: BUN/Creatinine Ratio 15.2 (8-20); Calcium 9.3 mg/dL (8.6-10.3); EGFR African American 81.2 (>60); EGFR Non-African American 67.1 (>60)
[2018-07-10] MEDS: Lisinopril TAB* 5 MG PO SCH (08:22)
[2018-07-10] MEDS: Insulin LISPRO* 1 UNITS UNIT SUBCUT SCH ×4 (08:22→20:51)
--- NOTE | 2018-07-10 10:12 | CONSULT ---
Consult Consult: Date of Service: 07/10/18 Reason for consultation: Necrotic appearing left small toe in the presence of arterial insufficiency Consulting Provider: Hospitalist Service & Dr. 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 It had progressed to erythema, worsening pain and discoloration to the fifth toe. Denies a history of known diabetes. Prior this injury he denies any symptoms characteristic of claudication or rest pain. He is otherwise healthy and takes no medications. He denies any fevers, sweats, chills. No home medications. Patient denies any PMH or PSH. Patient specifically denies knowledge of diabetes prior to hospital admission. Social Hx: Occupation: Employed Full-time Lives: With Family Alcohol Use: None Hx Substance Use: No Substance Use Type: Reports: None Hx Tobacco Use: Patient has been a full to 1/2 PPD cigarette smoking history since his teenage years. ROS: Constitutional: Negative Negative: Fever, Chills, Fatigue, Skin Diaphoresis Negative: Palpitations, Chest Pain Negative: Shortness Of Breath Genitourinary: Negative Positive: no symptoms reported, see HPI Positive: Arthralgia - left dorsum foot, left little toe All Other Systems Reviewed And Are Negative: Yes Physical Exam: Selected Entries 07/10/18 07/10/18 07:46 08:22 Temperature 98.2 F Temperature Oral Source Pulse Rate 69 Respiratory 17 Rate Blood Pressure 140/64 (mmHg) Blood Pressure 82 Mean O2 Sat by Pulse 95 Oximetry NAD, AAO x 3 RRR, S1/S2 CTAB 2+ pulses are readily palpable in BUE, B/L BASTING PULLER and pop pedal pulses are nonpalpable black discoloration to left small toe with dark purple discoloration of 4th toe and left lateral forefoot proximal from toes motor function grossly intact Vascular Imaging: CTA with runoff, 07/06/18 [facility] Patient Name:NICOLA GLOVER MR:[id number] : 1960 IMPRESSION: 1. There is widespread mixed attenuation atherosclerosis as described more detail above. The more severe and/or clinically relevant findings are as follows: * Mixed attenuation atherosclerosis of the infrarenal abdominal aorta causes approximately 50% degree luminal narrowing. * There is mixed attenuation atherosclerosis causing narrowing at the origin of the right superficial femoral artery and both of the mid-level and distal superficial femoral arteries as they course through Karson's canal. Luminal patency appears a maintained into the popliteal artery bilaterally though there is at least high-grade stenosis at several points. * Single vessel runoff bilaterally appears to be provided by the peroneal artery, though it is difficult to determine if the proximal left peroneal artery is patent throughout its length due to mixed attenuation atherosclerosis causing beam attenuation. * Bilaterally the dorsalis pedis artery and distal posterior tibial arteries appear to fill by collateralized flow as I suspect the more proximal portions are occluded due to calcified atherosclerosis. 2. There are additional chronic and degenerative changes described in the body the report unrelated to the patient's current acute presentation. <Electronically signed by Leon Ram MD in [place]> 07/06/181812 Dictated By: Leon Ram MD Dictated Date/Time: 07/06/181812 Transcribed Date/Time: 07/06/18 175 LAURE, 07/06/18 Patient Name: NICOLA GLOVER Medical Record#: [id number] Ordering Physician: Candis ROSARIO Acct.#: [id number] : 1960 Age: 58 Sex: M Location: SURGICAL STAY UNIT Exam Date: 07/06/18 1148 ADM Status: ADM IN Order Information: VL ANK/BRACHIAL INDICES Accession Number: [id number] CPT: 47592 INDICATION: Pain and discoloration left fifth toe. COMPARISON: There are no relevant prior studies available for comparison. TECHNIQUE: Bilateral ankle brachial indices were measured and Doppler tracings were obtained at the ankle of the dorsalis pedis and posterior tibial arteries. FINDINGS: The ankle brachial index on the right was 0.88 and on the left was 0.81. There is biphasic flow within the right posterior tibial artery and monophasic flow within the right dorsalis pedis artery. There is monophasic flow within the left posterior tibial artery and monophasic flow within the left dorsalis pedis artery. The toe brachial index was 0.45 on the right is 0.28 on the left. IMPRESSION: DECREASED ANKLE-BRACHIAL INDICES, TOE BRACHIAL INDICES AND WAVEFORMS CONSISTENT WITH SIGNIFICANT PERIPHERAL ARTERIAL DISEASE. A CT ANGIOGRAM OF THE AORTA AND LOWER EXTREMITIES MAY BE HELPFUL IN FURTHER DEFINITION. <Electronically signed by Denis Becerra MD in [facility]> 07/06/18 1348 Dictated By: Denis Becerra MD Dictated Date/Time: 07/06/18 1348 Transcribed Date/Time: 07/06/18 1345 (Relevant) Labs: Laboratory Tests 07/06/18 07/07/18 07/09/18 10:17 05:08 05:41 WBC RBC Hgb Hct Plt Count INR (Anticoag Therapy) BUN Creatinine Est GFR ( Amer) Est GFR (Non-Af Amer) Glucose 215 H 192 H 205 H 07/10/18 07/10/18 07/10/18 05:28 05:28 05:28 WBC 8.2 RBC 4.44 Hgb 13.3 L Hct 40 L Plt Count 257 INR (Anticoag Therapy) 1.07 BUN 17 Creatinine 1.12 Est GFR ( Amer) 81.2 Est GFR (Non-Af Amer) 67.1 Glucose 188 H Summary: 58 YOM, h/o tobacco abuse and undiagnosed DM2, with left lateral forefoot CLI and evidence of left infrapopliteal arterial insufficiency. CTA w/ runoff demonstrates adequate femoropopliteal flow, but calcified atherosclerosis prevents reliable determination of the degree and distribution left infrapopliteal arterial insufficiency. Catheter angiography with possible revascularization is indicated. Plan: 1. Patient currently not systemically septic with abx. 2. Catheter arteriography can be done before or shortly after amputation.
--- NOTE | 2018-07-10 15:34 | PN ---
Progress Note - Progress Note Date of Service: 07/10/18 SOAP: Subjective: []Pt seen at bedside. He is comfortable with pain in the left foot with movement. Denies fever, chills, nausea, CP, SOB Objective: []General: nontoxic appearing, NAD LLE: Left 5th digit is black, 4th digit and lateral dorsum of forefoot just proximal to 4th and 5th digit is purple [place], lacks sensation of 5th digit entirely, decreased sensation of 4th digit. No edema of the foot, mild erythema of the dorsum spanning to the ankle. DP not palpable. Calves supple and nontender Assessment: []Necrotic 5th toe Plan: []Will require Catheter arteriography. Eval by [facility] earlier today. Dr Grimm and Dr. Ram to discuss timing of amputation vs arteriography Continue zosyn Vital Signs Temp 98.0 F 07/10/18 11:16 Pulse 76 07/10/18 11:16 Resp 17 07/10/18 12:53 BP 123/59 07/10/18 11:16 Pulse Ox 98 07/10/18 11:16 Intake & Output 07/09/18 07/10/18 07/10/18 18:59 06:59 18:59 Intake Total 720 520 240 Output Total 360 1350 Balance 360 -830 240 Intake: IV Fluids 30 NS (0.9%) 30 IVPB 210 ABX - ZOSYN 210 Oral 720 520 Output: Urine 360 1350 Laboratory Last Values WBC 8.2 10^3/uL (3.5-10.8) 07/10/18 05:28 RBC 4.44 10^6 /uL (4.18-5.48) 07/10/18 05:28 Hgb 13.3 g/dL (14.0-18.0) L 07/10/18 05:28 Hct 40 % (42-52) L 07/10/18 05:28 MCV 90 fL (80-94) 07/10/18 05:28 MCH 30 pg (27-31) 07/10/18 05:28 MCHC 34 g/dL (31-36) 07/10/18 05:28 RDW 13 % (10.5-15) 07/10/18 05:28 Plt Count 257 10^3/uL (150-450) 07/10/18 05:28 MPV 8.1 fL (7.4-10.4) 07/10/18 05:28 Neut % (Auto) 64.0 % 07/10/18 05:28 Lymph % (Auto) 21.4 % 07/10/18 05:28 [place] % (Auto) 12.6 % 07/10/18 05:28 Eos % (Auto) 1.5 % 07/10/18 05:28 Baso % (Auto) 0.5 % 07/10/18 05:28 Absolute Neuts (auto) 5.2 10^3/ul (1.5-7.7) 07/10/18 05:28 Absolute Lymphs (auto) 1.8 10^3/ul (1.0-4.8) 07/10/18 05:28 Absolute Monos (auto) 1.0 10^3/ul (0-0.8) H 07/10/18 05:28 Absolute Eos (auto) 0.1 10^3/ul (0-0.6) 07/10/18 05:28 Absolute Basos (auto) 0.0 10^3/ul (0-0.2) 07/10/18 05:28 Absolute Nucleated RBC 0.0 10^3/ul 07/10/18 05:28 Nucleated RBC % 0.1 07/10/18 05:28 ESR 108 mm/Hr (0-19) H 07/06/18 10:17 INR (Anticoag Therapy) 1.07 (0.82-1.09) 07/10/18 05:28 Sodium 135 mmol/L (135-145) 07/10/18 05:28 Potassium 4.0 mmol/L (3.5-5.0) 07/10/18 05:28 Chloride 101 mmol/L (101-111) 07/10/18 05:28 Carbon Dioxide 29 mmol/L (22-32) 07/10/18 05:28 Anion Gap 5 mmol/L (2-11) 07/10/18 05:28 BUN 17 mg/dL (6-24) 07/10/18 05:28 Creatinine 1.12 mg/dL (0.67-1.17) 07/10/18 05:28 Est GFR ( Amer) 81.2 (>60) 07/10/18 05:28 Est GFR (Non-Af Amer) 67.1 (>60) 07/10/18 05:28 BUN/Creatinine Ratio 15.2 (8-20) 07/10/18 05:28 Glucose 188 mg/dL (70-100) H 07/10/18 05:28 POC Glucose (mg/dL) 215 mg/dL (70-100) H 07/10/18 11:32 Hemoglobin A1c 8.8 % (4.0-5.6) H 07/06/18 10:17 Calcium 9.3 mg/dL (8.6-10.3) 07/10/18 05:28 Total Bilirubin 0.40 mg/dL (0.2-1.0) 07/06/18 10:17 AST 12 U/L (13-39) L 07/06/18 10:17 ALT 11 U/L (7-52) 07/06/18 10:17 Alkaline Phosphatase 134 U/L (34-104) H 07/06/18 10:17 C-Reactive Protein 107.84 mg/L (<8.01) H 07/06/18 10:17 Total Protein 7.2 g/dL (6.4-8.9) 07/06/18 10:17 Albumin 3.9 g/dL (3.2-5.2) 07/06/18 10:17 Globulin 3.3 g/dL (2-4) 07/06/18 10:17 Albumin/Globulin Ratio 1.2 (1-3) 07/06/18 10:17 Triglycerides 77 mg/dL 07/07/18 05:08 Cholesterol 162 mg/dL 07/07/18 05:08 LDL Cholesterol 95 mg/dL 07/07/18 05:08 HDL Cholesterol 52.1 mg/dL 07/07/18 05:08
--- NOTE | 2018-07-10 18:52 | TRS ---
TRANSFER SUMMARY: DATE OF ADMISSION: 07/06/18 DATE OF TRANSFER: 07/10/18 ACCEPTING PHYSICIAN: Dr. Keon Iraheta. PRIMARY CARE PROVIDER: None. ATTENDING PHYSICIAN: Dr. Cydney Allan * (dictated by MARLENE Carr). PRIMARY DIAGNOSES: 1. Necrotic left fourth and fifth digits with osteomyelitis. 2. Peripheral artery disease. 3. Diabetes mellitus type 2. SECONDARY DIAGNOSES: None. STUDIES AND PROCEDURES WHILE IN THE HOSPITAL: 1. Foot x-ray, 07/06/18, impression: No evidence of lysis to suggest osteomyelitis of the left digit. No fracture is noted. 2. MRI of the left foot, 07/06/18, impression: There is bone marrow edema in the proximal, middle, and distal phalanges of the fifth toe and the distal phalanx of the fourth toe suggestive of osteomyelitis. 3. Venous Doppler study, left, 07/06/18, impression: No left lower extremity deep vein thrombosis. 4. Aorta with runoff CTA, 07/06/18, impression: There is widespread mixed attenuation atherosclerosis as described in more detail above. The more severe and/or clinically relevant findings are as follows: Mixed attenuation atherosclerosis of the infrarenal abdominal aorta causes approximately 50% luminal narrowing. There is mixed attenuation atherosclerosis causing narrowing at the origin of the right superficial femoral artery and both of the mid level and distal superficial femoral arteries as they course through Karson' s canal. Luminal patency appears maintained into the popliteal artery bilaterally, though there is at least high-grade stenosis at several points. Single vessel runoff bilaterally appears to be provided by the peroneal artery, though it is difficult to determine if the proximal left peroneal artery is patent throughout its length due to mixed attenuation atherosclerosis causing beam attenuation. Bilaterally, the dorsalis pedis artery and distal posterior tibial arteries appear to fill by collateralized flow as I suspect the more proximal portions are occluded due to calcified atherosclerosis. There are additional chronic and degenerative changes described in the body of the report unrelated to the patient's current acute presentation. DISCHARGE MEDICATIONS: Home medications: 1. Oxycodone 5 mg p.o. q.6 hours p.r.n. pain. 2. Lisinopril 5 mg p.o. daily. 3. Lispro sliding scale. 4. Nicotine gum 2 mg p.o. q.2 hours p.r.n. craving. 5. Zosyn 3.375 g q.8 hours IV, last dose administered 07/10/18, at 1452. HISTORY OF PRESENT ILLNESS/HOSPITAL COURSE: Mr. Cline is a 58-year-old male with no past medical history, who presented to the ER after having "crashed" his left foot with a truck door approximately 2 weeks ago. He states that it hurts since it occurred that he finally decided to come to the ER for evaluation. He states that the foot has been swollen since the accident, but denies any other symptoms including fever. The patient received a full workup in the ER. He was then admitted to the hospital under the care of the hospitalist. Orthopedics and Interventional Radiology were consulted. The patient was found to have a left fifth toe necrosis with underlying osteomyelitis. He was treated with Zosyn. Doppler of the left leg showed no DVT. CTA aorta with runoff showed peripheral vascular disease. Orthopedic Surgery was consulted. They requested vascular evaluation and intervention prior to amputation. Interventional Radiology was consulted. The patient then was found to have necrosis spreading to the fourth digit. Interventional Radiology suggested transfer out for possible revascularization prior to amputation. At this time, transfer is being set up. Dr. Keon Iraheta at [facility] has accepted the patient. At this time, the patient has no complaints. He understands that he will be transferred to [facility]. He denies chest pain, shortness of breath, abdominal pain, nausea, vomiting, diarrhea, constipation, or pain in the calves. He has pain in the left foot area as well as edema, erythema, and blackening necrosis of the toes. He states that this is painful. Mr. Cline is stable for discharge to [facility] under the care of Dr. Iraheta. PHYSICAL EXAMINATION: Vital signs are temperature 98.1 oral, heart rate 75, respiratory rate 15, oxygen saturation 99% on room air, blood pressure 132/82. General: Mr. Cline is a well-developed, well-nourished middle-aged man, who is sitting in his chair with his lower extremities at rest on the floor. He does not appear to be acutely ill. He appears to be in no distress. HEENT: Visual sheehan are grossly intact. The pupils are equally round and reactive to light. Extraocular movements are intact. Sclerae are without icterus. Hearing is grossly intact. Oral mucous membranes are moist. There are no lesions. The pharynx is clear. Cardiovascular: Regular rate and rhythm with S1, S2 present. There are no murmurs, rubs, or gallops. There is no JVD. Respiratory : Symmetrical chest expansion without use of accessory muscles. Lungs are clear to auscultation. There are no rhonchi, wheezes, or rubs. Extremities: Skin is warm and smooth bilaterally. There is no clubbing or cyanosis. Radial pulses are palpable. There is left pedal edema. The dorsum of the foot is erythematous distally. The fourth and fifth toes on the left foot are black and necrotic appearing. There are tender to palpation. There is no discharge. The area is malodorous. Neuro: The patient is awake. He is alert and oriented x3. He is able to move all of his extremities. DISCHARGE PLAN: Mr. Cline will be transferred to [facility]. DIET: Heart-healthy, ADA. MEDICATIONS: As above. This is a summarized report of a complex medical history and hospital stay. For further details, please see the entire medical record. TIME SPENT: Approximately 45 minutes was spent on this transfer, greater than half that time was spent [id number] with the patient discussing discharge plans and instructions. MARLENE JONES [id number]/CPS #: [id number] HERRERA
[2018-07-10 20:53] VITALS: BP 153/74
== END 2018-07-10 21:08 | disposition short-term general hospital (02) | DRG 300 ==
LOC: ED 09:39 → SSU 11:40
PROVIDERS: ADMIT Internal Medicine; ATTEND Internal Medicine
DX: E11.52 Type 2 diabetes mellitus with diabetic peripheral angiopathy with gangrene (principal); M86.8X7 Other osteomyelitis, ankle and foot; I96 Gangrene, not elsewhere classified; M86.9 Osteomyelitis, unspecified; S97.122A Crushing injury of left lesser toe(s), initial encounter; W23.1XXA Caught, crushed, jammed, or pinched between stationary objects, initial encounter; F17.210 Nicotine dependence, cigarettes, uncomplicated; L03.032 Cellulitis of left toe; E11.65 Type 2 diabetes mellitus with hyperglycemia; I70.203 Unspecified atherosclerosis of native arteries of extremities, bilateral legs; E11.69 Type 2 diabetes mellitus with other specified complication; Y92.9 Unspecified place or not applicable; Z83.3 Family history of diabetes mellitus
CPT/HCPCS: 36415; 75635; 80048; 80053; 80061; 83036; 85025; 85610; 85652; 86140; 87040; 93005; 93922; 99284; A9270-GY; J2270; J2543; Q9967

== ENCOUNTER 2022-02-18 16:34 | Inpatient (IN) ==
[2022-02-18 17:35] LABS: ABS Basophils 0.1 10^3/ul (0-0.2); ABS Eosinophils 0.1 10^3/ul (0-0.6); ABS Lymphocytes 1.6 10^3/ul (1.0-4.8); ABS Monocytes 0.8 10^3/ul (0-0.8); ABS Neutrophils 8.2 10^3/ul (1.5-7.7); Eosinophil % 0.6 %; Hematocrit 36 % (42-52); Hemoglobin 12.9 g/dL (14.0-18.0); Lymphocyte % 14.9 %; Mean Corpuscular HGB Conc 36 g/dL (31-36); Mean Corpuscular Hemoglobin 30 pg (27-31); Mean Corpuscular Volume 83 fL (80-94); Mean Platelet Volume 7.7 fL (7.4-10.4); Nucleated Red Blood Cells % 0.1; Platelet Count 404 10^3/uL (150-450); Red Blood Count 4.37 10^6 /uL (4.18-5.48); Red Cell Distribution Width 13 % (10-15); White Blood Count 10.8 10^3/uL (3.5-10.8)
[2022-02-18 18:15] LABS: Albumin 3.9 g/dL (3.2-5.2); Albumin/Globulin Ratio 1.2 (1-3); C Reactive Protein 119.85 mg/L (<8.01); Calcium 9.2 mg/dL (8.6-10.3); Creatinine, Serum 1.07 mg/dL (0.67-1.17); Globulin 3.3 g/dL (2-4); Potassium 4.5 mmol/L (3.5-5.0); Total Bilirubin 0.7 mg/dL (0.2-1.0); Total Protein 7.2 g/dL (6.4-8.9); eGFR CKD-EPI 78.5 (>60)
[2022-02-18] MEDS ORDERED: Piperacillin/Tazobac ADVAN 3.375 GM in NS 0.9% 100 ml BAG 100 ML IV ONE (18:31)
[2022-02-18] MEDS ORDERED: Piperacillin/Tazobac 3.375 GM BAG ONE (18:40)
[2022-02-18 18:52] LABS: Erythrocyte Sed Rate 104 mm/Hr (0-19)
[2022-02-18] MEDS ORDERED: Vancomycin 1,250 MG in NS 0.9% 250 ml 250 ML IVPB ONE (19:00)
[2022-02-18] MEDS ORDERED: Dextrose 50% Syringe 50 ml 25 GM/50 ML SYRINGE IV PUSH PRN (21:04)
[2022-02-18] MEDS ORDERED: Heparin 5000 UNITS/ML 1 mL VIAL SUBCUT ONE (21:04)
[2022-02-18] MEDS ORDERED: Zosyn per Pharmacy NOTE FOLLOW UP SCH (22:00)
[2022-02-18] MEDS ORDERED: Vancomycin per Pharmacy 1 EA NOTE FOLLOW UP SCH (22:00)
[2022-02-18] MEDS: Nicotine PATCH 7 MG/24 HR PATCH TRANSDERM SCH (23:46)
[2022-02-18] MEDS: ZOSYN 3.375 GM Q8H per EXTENDED INFUSION IV SCH (23:46)
[2022-02-19] MEDS ORDERED: Lorazepam PYXIS KEY PRN (03:34)
[2022-02-19] MEDS ORDERED: LORazepam 2 mg VIAL 1 ml IV PUSH ONE (03:34)
[2022-02-19 07:21] LABS: ABS Basophils 0.1 10^3/ul (0-0.2); ABS Eosinophils 0.1 10^3/ul (0-0.6); ABS Lymphocytes 1.6 10^3/ul (1.0-4.8); ABS Monocytes 0.7 10^3/ul (0-0.8); ABS Neutrophils 5.4 10^3/ul (1.5-7.7); Eosinophil % 1.3 %; Hematocrit 32 % (42-52); Hemoglobin 11.4 g/dL (14.0-18.0); Lymphocyte % 19.8 %; Mean Corpuscular HGB Conc 35 g/dL (31-36); Mean Corpuscular Hemoglobin 29 pg (27-31); Mean Corpuscular Volume 82 fL (80-94); Mean Platelet Volume 7.9 fL (7.4-10.4); Platelet Count 324 10^3/uL (150-450); Red Blood Count 3.95 10^6 /uL (4.18-5.48); Red Cell Distribution Width 13 % (10-15); White Blood Count 7.9 10^3/uL (3.5-10.8)
[2022-02-19 07:29] LABS: INR 1.05 (0.88-1.18)
[2022-02-19 07:45] LABS: Calcium 8.5 mg/dL (8.6-10.3); Creatinine, Serum 1.14 mg/dL (0.67-1.17); Magnesium 1.9 mg/dL (1.9-2.7); Potassium 4.1 mmol/L (3.5-5.0); eGFR CKD-EPI 72.7 (>60)
[2022-02-19] MEDS: ZOSYN 3.375 GM Q8H per EXTENDED INFUSION IV SCH ×3 (07:46→23:44)
[2022-02-19] MEDS: Nicotine PATCH 7 MG/24 HR PATCH TRANSDERM SCH (11:18)
[2022-02-19] MEDS: Vancomycin 1,250 MG in NS 0.9% 250 ml 250 ML IVPB SCH ×2 (12:53→21:03)
[2022-02-19] MEDS ORDERED: Polyethylene Glycol 3350 17 GM PACKET PO PRN (13:43)
[2022-02-19] MEDS: Enoxaparin 40 MG/0.4 ML SYR SUBCUT SCH (14:31)
[2022-02-20] MEDS: ZOSYN 3.375 GM Q8H per EXTENDED INFUSION IV SCH (04:50)
[2022-02-20] MEDS ORDERED: Vancomycin Trough Check NOTE FOLLOW UP ONE (08:30)
[2022-02-20] MEDS: Nicotine PATCH 7 MG/24 HR PATCH TRANSDERM SCH (08:32)
[2022-02-20 09:16] LABS: Creatinine, Serum 1.3 mg/dL (0.67-1.17); Potassium 4.3 mmol/L (3.5-5.0); eGFR CKD-EPI 62.1 (>60)
[2022-02-20] MEDS: Vancomycin 1,250 MG in NS 0.9% 250 ml 250 ML IVPB SCH (09:43)
[2022-02-20] MEDS: Enoxaparin 40 MG/0.4 ML SYR SUBCUT SCH (14:03)
[2022-02-20] MEDS: Cefepime 1 GM in Dextrose 1 GM/50 ML BAG IV SCH (20:46)
[2022-02-20] MEDS: metroNIDAZOLE IV 500 MG/100ML 500 MG/100 ML BAG IVPB SCH (21:35)
[2022-02-20] MEDS: Vancomycin 1000 MG in NS 0.9% 250 ML IVPB SCH (22:40)
[2022-02-21] MEDS: metroNIDAZOLE IV 500 MG/100ML 500 MG/100 ML BAG IVPB SCH ×4 (04:03→19:17)
[2022-02-21 07:25] LABS: ABS Basophils 0.1 10^3/ul (0-0.2); ABS Eosinophils 0.1 10^3/ul (0-0.6); ABS Lymphocytes 1.6 10^3/ul (1.0-4.8); ABS Monocytes 0.6 10^3/ul (0-0.8); ABS Neutrophils 5.7 10^3/ul (1.5-7.7); Eosinophil % 1.5 %; Hematocrit 30 % (42-52); Hemoglobin 10.5 g/dL (14.0-18.0); Lymphocyte % 19.6 %; Mean Corpuscular HGB Conc 35 g/dL (31-36); Mean Corpuscular Hemoglobin 29 pg (27-31); Mean Corpuscular Volume 83 fL (80-94); Mean Platelet Volume 8.1 fL (7.4-10.4); Platelet Count 310 10^3/uL (150-450); Red Blood Count 3.63 10^6 /uL (4.18-5.48); Red Cell Distribution Width 13 % (10-15)
[2022-02-21 07:46] LABS: Calcium 8.1 mg/dL (8.6-10.3); Creatinine, Serum 1.09 mg/dL (0.67-1.17); Potassium 4.4 mmol/L (3.5-5.0); eGFR CKD-EPI 76.7 (>60)
[2022-02-21] MEDS: Cefepime 1 GM in Dextrose 1 GM/50 ML BAG IV SCH ×2 (09:20→18:44)
[2022-02-21] MEDS: Nicotine PATCH 7 MG/24 HR PATCH TRANSDERM SCH (09:24)
[2022-02-21] MEDS: Vancomycin 1000 MG in NS 0.9% 250 ML IVPB SCH ×2 (10:08→20:36)
[2022-02-21] MEDS: Enoxaparin 40 MG/0.4 ML SYR SUBCUT SCH (14:30)
[2022-02-22] MEDS: metroNIDAZOLE IV 500 MG/100ML 500 MG/100 ML BAG IVPB SCH ×2 (03:38→13:16)
[2022-02-22] MEDS: Cefepime 1 GM in Dextrose 1 GM/50 ML BAG IV SCH ×2 (07:45→19:07)
[2022-02-22] MEDS ORDERED: Vancomycin Trough Check NOTE FOLLOW UP ONE (08:30)
[2022-02-22] MEDS: Nicotine PATCH 7 MG/24 HR PATCH TRANSDERM SCH (09:19)
[2022-02-22 09:36] LABS: Creatinine, Serum 1.03 mg/dL (0.67-1.17); Vancomycin Trough 16.8 mcg/mL; eGFR CKD-EPI 82.1 (>60)
[2022-02-22] MEDS: Vancomycin 1000 MG in NS 0.9% 250 ML IVPB SCH ×2 (10:26→20:36)
[2022-02-22] MEDS ORDERED: Midazolam 5 mg/5 ml VIAL 1 mg/ml 5 ml VIAL (5 mg) ONE (13:07)
[2022-02-22] MEDS ORDERED: fentaNYL 100 mcg/2 ml 50 MCG/ML VIAL ONE ×2 (13:08→15:27)
[2022-02-22] MEDS ORDERED: Heparin 1,000 UNIT/ML 10 ml (10,000 UNITS) CATHLAB/DIALYSIS ONE (13:08)
[2022-02-22] MEDS ORDERED: Lidocaine 1% VIAL 10 MG/ML VIAL 30 ML ONE (13:12)
[2022-02-22] MEDS ORDERED: Heparin 2 UNITS/ML IVPREMIX 3,000 UNIT/1,500 ML BAG IV ONE (13:12)
[2022-02-22] MEDS ORDERED: Iodixanol 320 (CONTRAST) 100 ML SDV ONE (13:24)
[2022-02-22] MEDS: Enoxaparin 40 MG/0.4 ML SYR SUBCUT SCH (17:18)
[2022-02-23] MEDS: Cefepime 1 GM in Dextrose 1 GM/50 ML BAG IV SCH ×2 (07:26→18:59)
[2022-02-23 08:12] LABS: ABS Basophils 0.1 10^3/ul (0-0.2); ABS Eosinophils 0.1 10^3/ul (0-0.6); ABS Lymphocytes 1.2 10^3/ul (1.0-4.8); ABS Monocytes 0.6 10^3/ul (0-0.8); ABS Neutrophils 6.4 10^3/ul (1.5-7.7); Eosinophil % 1.6 %; Hematocrit 30 % (42-52); Hemoglobin 10.5 g/dL (14.0-18.0); Lymphocyte % 14.6 %; Mean Corpuscular HGB Conc 35 g/dL (31-36); Mean Corpuscular Hemoglobin 28 pg (27-31); Mean Corpuscular Volume 82 fL (80-94); Mean Platelet Volume 7.7 fL (7.4-10.4); Nucleated Red Blood Cells % 0.2; Platelet Count 288 10^3/uL (150-450); Red Blood Count 3.68 10^6 /uL (4.18-5.48); Red Cell Distribution Width 13 % (10-15); White Blood Count 8.4 10^3/uL (3.5-10.8)
[2022-02-23 08:27] LABS: C Reactive Protein 58.83 mg/L (<8.01); Calcium 8.3 mg/dL (8.6-10.3); Creatinine, Serum 0.96 mg/dL (0.67-1.17); Potassium 4.5 mmol/L (3.5-5.0); eGFR CKD-EPI 89.4 (>60)
[2022-02-23] MEDS: Vancomycin 1000 MG in NS 0.9% 250 ML IVPB SCH ×2 (08:59→21:08)
[2022-02-23] MEDS: Nicotine PATCH 7 MG/24 HR PATCH TRANSDERM SCH (08:59)
[2022-02-23] MEDS: Enoxaparin 40 MG/0.4 ML SYR SUBCUT SCH (14:07)
[2022-02-24] MEDS: Cefepime 1 GM in Dextrose 1 GM/50 ML BAG IV SCH ×2 (08:37→19:39)
[2022-02-24] MEDS: Nicotine PATCH 7 MG/24 HR PATCH TRANSDERM SCH (08:40)
[2022-02-24] MEDS: Vancomycin 1000 MG in NS 0.9% 250 ML IVPB SCH ×2 (10:00→21:34)
[2022-02-24] MEDS: Enoxaparin 40 MG/0.4 ML SYR SUBCUT SCH (13:37)
[2022-02-25] MEDS: Cefepime 1 GM in Dextrose 1 GM/50 ML BAG IV SCH ×2 (07:35→19:45)
[2022-02-25] MEDS ORDERED: Vancomycin Trough Check NOTE FOLLOW UP ONE (08:30)
[2022-02-25] MEDS: Nicotine PATCH 7 MG/24 HR PATCH TRANSDERM SCH (08:36)
[2022-02-25] MEDS: Vancomycin 1000 MG in NS 0.9% 250 ML IVPB SCH ×2 (08:36→20:37)
[2022-02-25] MEDS: Enoxaparin 40 MG/0.4 ML SYR SUBCUT SCH (13:05)
[2022-02-26 06:09] LABS: ABS Basophils 0.1 10^3/ul (0-0.2); ABS Eosinophils 0.2 10^3/ul (0-0.6); ABS Lymphocytes 1.5 10^3/ul (1.0-4.8); ABS Monocytes 0.8 10^3/ul (0-0.8); ABS Neutrophils 5.4 10^3/ul (1.5-7.7); Eosinophil % 1.9 %; Hematocrit 30 % (42-52); Hemoglobin 9.9 g/dL (14.0-18.0); Lymphocyte % 18.4 %; Mean Corpuscular HGB Conc 33 g/dL (31-36); Mean Corpuscular Hemoglobin 28 pg (27-31); Mean Corpuscular Volume 85 fL (80-94); Mean Platelet Volume 7.8 fL (7.4-10.4); Platelet Count 279 10^3/uL (150-450); Red Blood Count 3.52 10^6 /uL (4.18-5.48); Red Cell Distribution Width 13 % (10-15); White Blood Count 7.9 10^3/uL (3.5-10.8)
[2022-02-26 06:55] LABS: Calcium 8.4 mg/dL (8.6-10.3); Creatinine, Serum 1.06 mg/dL (0.67-1.17); Potassium 4.5 mmol/L (3.5-5.0); eGFR CKD-EPI 79.3 (>60)
[2022-02-26] MEDS: Cefepime 1 GM in Dextrose 1 GM/50 ML BAG IV SCH ×2 (09:15→21:13)
[2022-02-26] MEDS: Nicotine PATCH 7 MG/24 HR PATCH TRANSDERM SCH (09:16)
[2022-02-26] MEDS: Vancomycin 1000 MG in NS 0.9% 250 ML IVPB SCH ×2 (09:59→21:33)
[2022-02-26] MEDS ORDERED: Buffered Lidocaine 1% SYRIN 1 ml INTRADERM ONE (15:18)
[2022-02-26] MEDS ORDERED: Ondansetron 4 mg VIAL 2 MG/ML 2 ml VIAL IV PRN (15:19)
[2022-02-26] MEDS ORDERED: Naloxone 0.4 mg VIAL 0.4 mg/ml 1 ml VIAL IV PRN (15:19)
[2022-02-26] MEDS ORDERED: Lactated Ringers 1000 ml BAG 1,000 ML IV SCH (16:00)
[2022-02-26] MEDS ORDERED: Midazolam 2 mg/2 ml VIAL 1 mg/ml 2 ml VIAL (2 mg) ONE (16:03)
[2022-02-26] MEDS ORDERED: Lidocaine 2% PF 5 ML VIAL ONE (16:03)
[2022-02-26] MEDS ORDERED: Propofol 10 MG/ML 20 ML BTL ONE (16:03)
[2022-02-26] MEDS ORDERED: fentaNYL 100 mcg/2 ml 50 MCG/ML VIAL ONE ×2 (16:03→20:04)
[2022-02-26] MEDS ORDERED: Dexamethasone IV 4 MG/ML VIAL 1 ml VIAL ONE (18:20)
[2022-02-26] MEDS ORDERED: Ondansetron 4 mg VIAL 2 MG/ML 2 ml VIAL ONE (18:20)
[2022-02-26] MEDS ORDERED: Glycopyrrolate IV 0.2 MG/ML 1 ML VIAL ONE (18:27)
[2022-02-26] MEDS ORDERED: ceFAZolin 2 GM in NS PREMIX 2 GM/100 ML BAG IVPB ONE (18:34)
[2022-02-26] MEDS ORDERED: Phenylephrine 40 mcg/mL 10mL (400mcg) SYRINGE ONE (18:51)
[2022-02-26] MEDS: fentaNYL 100 mcg/2 ml 50 MCG/ML VIAL IV PRN ×4 (20:06→20:29)
[2022-02-26] MEDS: Senna TAB 8.6 mg TAB PO PRN (21:14)
[2022-02-27 07:10] LABS: ABS Monocytes 0.7 10^3/ul (0-0.8); ABS Neutrophils 8.9 10^3/ul (1.5-7.7); Eosinophil % 0.1 %; Hematocrit 29 % (42-52); Hemoglobin 9.8 g/dL (14.0-18.0); Lymphocyte % 9.6 %; Mean Corpuscular HGB Conc 34 g/dL (31-36); Mean Corpuscular Hemoglobin 29 pg (27-31); Mean Corpuscular Volume 85 fL (80-94); Mean Platelet Volume 7.9 fL (7.4-10.4); Platelet Count 285 10^3/uL (150-450); Red Blood Count 3.44 10^6 /uL (4.18-5.48); Red Cell Distribution Width 13 % (10-15); White Blood Count 10.6 10^3/uL (3.5-10.8)
[2022-02-27 07:43] LABS: Calcium 8.1 mg/dL (8.6-10.3); Creatinine, Serum 1.2 mg/dL (0.67-1.17); Potassium 4.7 mmol/L (3.5-5.0); eGFR CKD-EPI 68.4 (>60)
[2022-02-27] MEDS ORDERED: NS 0.9% 1000 ml BAG 1,000 ML IV SCH (08:00)
[2022-02-27] MEDS: Cefepime 1 GM in Dextrose 1 GM/50 ML BAG IV SCH ×2 (08:58→19:58)
[2022-02-27] MEDS: Nicotine PATCH 7 MG/24 HR PATCH TRANSDERM SCH (09:00)
[2022-02-27] MEDS: Vancomycin 1000 MG in NS 0.9% 250 ML IVPB SCH ×2 (09:43→22:29)
[2022-02-27] MEDS: Enoxaparin 40 MG/0.4 ML SYR SUBCUT SCH (12:15)
[2022-02-28 05:58] LABS: ABS Basophils 0.1 10^3/ul (0-0.2); ABS Eosinophils 0.1 10^3/ul (0-0.6); ABS Lymphocytes 1.8 10^3/ul (1.0-4.8); ABS Monocytes 0.8 10^3/ul (0-0.8); ABS Neutrophils 4.9 10^3/ul (1.5-7.7); Hematocrit 29 % (42-52); Hemoglobin 9.4 g/dL (14.0-18.0); Lymphocyte % 23.6 %; Mean Corpuscular HGB Conc 33 g/dL (31-36); Mean Corpuscular Hemoglobin 29 pg (27-31); Mean Corpuscular Volume 87 fL (80-94); Mean Platelet Volume 8.1 fL (7.4-10.4); Nucleated Red Blood Cells % 0.1; Platelet Count 264 10^3/uL (150-450); Red Blood Count 3.28 10^6 /uL (4.18-5.48); Red Cell Distribution Width 13 % (10-15); White Blood Count 7.6 10^3/uL (3.5-10.8)
[2022-02-28 06:30] LABS: Calcium 8.2 mg/dL (8.6-10.3); Creatinine, Serum 1.26 mg/dL (0.67-1.17); Potassium 4.4 mmol/L (3.5-5.0); eGFR CKD-EPI 64.5 (>60)
[2022-02-28] MEDS: Cefepime 1 GM in Dextrose 1 GM/50 ML BAG IV SCH ×2 (08:19→20:40)
[2022-02-28] MEDS: Vancomycin 1000 MG in NS 0.9% 250 ML IVPB SCH (09:34)
[2022-02-28] MEDS: Enoxaparin 40 MG/0.4 ML SYR SUBCUT SCH (09:35)
[2022-02-28] MEDS: Nicotine PATCH 7 MG/24 HR PATCH TRANSDERM SCH (09:42)
[2022-03-01 06:34] LABS: C Reactive Protein 28.62 mg/L (<8.01); Calcium 8.6 mg/dL (8.6-10.3); Creatinine, Serum 1.03 mg/dL (0.67-1.17); Potassium 4.4 mmol/L (3.5-5.0); eGFR CKD-EPI 82.1 (>60)
[2022-03-01 07:32] LABS: ABS Basophils 0.1 10^3/ul (0-0.2); ABS Eosinophils 0.1 10^3/ul (0-0.6); ABS Lymphocytes 1.4 10^3/ul (1.0-4.8); ABS Monocytes 0.6 10^3/ul (0-0.8); ABS Neutrophils 5.4 10^3/ul (1.5-7.7); Eosinophil % 1.2 %; Hematocrit 31 % (42-52); Hemoglobin 10.1 g/dL (14.0-18.0); Lymphocyte % 18.6 %; Mean Corpuscular HGB Conc 33 g/dL (31-36); Mean Corpuscular Hemoglobin 28 pg (27-31); Mean Corpuscular Volume 85 fL (80-94); Mean Platelet Volume 8.4 fL (7.4-10.4); Platelet Count 293 10^3/uL (150-450); Red Blood Count 3.62 10^6 /uL (4.18-5.48); Red Cell Distribution Width 13 % (10-15); White Blood Count 7.6 10^3/uL (3.5-10.8)
[2022-03-01] MEDS ORDERED: Vancomycin Trough Check NOTE FOLLOW UP ONE (08:30)
[2022-03-01] MEDS: Cefepime 1 GM in Dextrose 1 GM/50 ML BAG IV SCH (09:27)
[2022-03-01] MEDS: Enoxaparin 40 MG/0.4 ML SYR SUBCUT SCH (09:28)
[2022-03-01] MEDS: Nicotine PATCH 7 MG/24 HR PATCH TRANSDERM SCH (09:56)
[2022-03-01] MEDS ORDERED: Lidocaine 1% MPF 5 ML VIAL INJ ONE (12:04)
[2022-03-01] MEDS: Senna TAB 8.6 mg TAB PO PRN (20:27)
[2022-03-02] MEDS: Enoxaparin 40 MG/0.4 ML SYR SUBCUT SCH (09:34)
[2022-03-02] MEDS: cefTRIAXone 1 gm/50 mL D5W 1 GM/50 ML BAG IV SCH (09:38)
[2022-03-02] MEDS: Nicotine PATCH 7 MG/24 HR PATCH TRANSDERM SCH (10:49)
[2022-03-03] MEDS: cefTRIAXone 1 gm/50 mL D5W 1 GM/50 ML BAG IV SCH (09:13)
[2022-03-03] MEDS: Enoxaparin 40 MG/0.4 ML SYR SUBCUT SCH (09:14)
[2022-03-03] MEDS: Nicotine PATCH 7 MG/24 HR PATCH TRANSDERM SCH (09:15)
[2022-03-03 11:10] VITALS: BP 111/65
== END 2022-03-03 14:50 | disposition home or self-care (01) | DRG 314 ==
LOC: ED 16:34 → SUATTDRO 19:21 → EDHOLD 19:21 → MED 02-19 09:22
PROVIDERS: ADMIT Internal Medicine; ATTEND Internal Medicine
PROC: O.ORAMP (2022-02-26 17:30)